=== PATIENT | male | born 1975 | race Caucasian/White ===

== ENCOUNTER 2016-11-04 16:42 | Emergency (ER) | payer OTHER ==
[2016-11-04 16:49] VITALS: RESP 18
[2016-11-04] MEDS ORDERED: ACETAMINOPHEN 325 MG TAB PO ONE (17:08)
[2016-11-04] MEDS ORDERED: NS 1,000 ML IV ONE ×2 (17:12→17:13)
--- NOTE | 2016-11-04 17:14 | EDPHY ---
H & P Time Seen by Provider: 11/04/16 17:11 HPI/ROS: HPI: 41-year-old male presents to emergency department with chief concern flu- like symptoms. I feel very sick. Developed dry cough accompanied with myalgias, chills, weakness 3 days ago. Seem to improve yesterday with resolution of fever with sudden onset of 102 degree fever and worsening of cough today. Reports associated mild shortness of breath. Denies dizziness, dysphagia, chest pain, abdominal pain, nausea, vomiting, diarrhea, rash. No aggravating or alleviating factors. Denies significant past medical history. No history of asthma or pneumonia. Did not receive a flu shot this year. No recent international travel. Has no primary care provider. ROS:10 point review of systems is negative other than as stated in HPI Past Medical/Surgical History: Denies Social History: chartered wealth manager Smoking Status: Never smoked Physical Exam: Temp 38.2, heart rate 96, respiratory rate 18, blood pressure 109/70, 93% on room air General: Awake, alert, calm, cooperative. No acute distress. Head: Normalocephalic. Atraumatic. EENT: PERRLA. EOMI. No pallor or injection. Anicteric. No nystagmus. No injection. TMs intact bilaterally with normal landmarks. Minimal rhinorrhea with moderately erythematous bilateral nasal turbinates. Oropharynx with minimal erythema. Tonsils 2+ bilaterally, no exudates. Neck: Supple, nontender. No lymphadenopathy. Full range of motion. No meningismus. Respiratory: Breathing unlabored. Breath sounds with moderate rhonchi bilateral lower lobes. CV: Chest nontender, atraumatic. Heart rate regular. No murmur, distal pulses 2+ bilaterally. Brisk cap refill all extremities. GI: Abdomen soft, nontender. Bowel sounds normoactive and positive x4 quadrants. Neuro: Alert. Oriented x 3. Speech clear. Nonfocal cranial nerves throughout. Sensation intact all extremities. Skin: Skin warm, dry, intact. No rashes. Skin turgor normal. Extremities: Full range of motion in all 4 extremities. Strength 5+ all extremities. Constitutional: Initial Vital Signs Temperature (C) 38.2 C 11/04/16 16:46 Heart Rate 96 11/04/16 16:46 Respiratory Rate 18 11/04/16 16:46 Blood Pressure 109/70 11/04/16 16:46 O2 Sat (%) 93 11/04/16 16:46 O2 Delivery Mode Room Air Allergies/Adverse Reactions: No Known Allergies Allergy (Unverified 11/04/16 16:49) Home Medications: Medication Instructions Recorded Albuterol Hfa Anes Only [Proair 2 puffs IH QID PRN #1 mdi 11/04/16 Hfa Anes Only] Medical Decision Making ED Course/Re-evaluation: 41-year-old male presents to emergency department with flu-like symptoms and mild shortness of breath. IV normal saline started. Given 650 mg p.o. Tylenol. Labs drawn. Chest x-ray ordered. 1814-positive for influenza A. Chest x-ray negative for evidence of pneumonia. We will treat him with an inhaler for bronchial wall thickening/airway disease and have him follow up with primary care. He is outside the Tamiflu treatment time. Differential Diagnosis: Differential diagnosis includes but is not limited to and in no particular order pneumonia, influenza, bronchitis, other viral URI - Data Points Laboratory Results: Laboratory Results 11/04/16 17:05 11/04/16 17:05 11/04/16 11/04/16 11/04/16 17:32 17:05 16:55 WBC 11.29 H 10^3/uL (3.80-9.50) RBC 5.43 10^6/uL (4.40-6.38) Hgb 17.4 g/dL (13.7-17.5) Hct 50.2 % (40.0-51.0) MCV 92.4 fL (81.5-99.8) MCH 32.0 pg (27.9-34.1) MCHC 34.7 g/dL (32.4-36.7) RDW 12.1 % (11.5-15.2) Plt Count 159 10^3/uL (150-400) MPV 11.4 fL (8.7-11.7) Neut % (Auto) 83.3 H % (39.3-74.2) Lymph % (Auto) 9.6 L % (15.0-45.0) Mcpherson % (Auto) 6.5 % (4.5-13.0) Eos % (Auto) 0.0 L % (0.6-7.6) Baso % (Auto) 0.3 % (0.3-1.7) Nucleat RBC Rel Count 0.0 % (0.0-0.2) Absolute Neuts (auto) 9.42 H 10^3/uL (1.70-6.50) Absolute Lymphs (auto) 1.08 10^3/uL (1.00-3.00) Absolute Monos (auto) 0.73 10^3/uL (0.30-0.80) Absolute Eos (auto) 0.00 L 10^3/uL (0.03-0.40) Absolute Basos (auto) 0.03 10^3/uL (0.02-0.10) Absolute Nucleated RBC 0.00 10^3/uL (0-0.01) Immature Gran % 0.3 % (0.0-1.1) Immature Gran # 0.03 10^3/uL (0.00-0.10) VBG Lactic Acid 1.3 mmol/L (0.7-2.1) Sodium 139 mEq/L (134-144) Potassium 3.8 mEq/L (3.5-5.2) Chloride 98 mEq/L (97-110) Carbon Dioxide 27 mEq/l (22-31) Anion Gap 14 mEq/L (8-16) BUN 15 mg/dL (7-23) Creatinine 1.0 mg/dL (0.7-1.3) Estimated GFR > 60 Glucose 101 H mg/dL (70-100) Calcium 9.1 mg/dL (8.5-10.4) Influenza Typ A,B (DFA) POSITIVE FOR FLU A H (NEGATIVE) Medications Given: Discontinued Medications Acetaminophen (Tylenol) 650 mg PO EDNOW ONE Stop: 11/04/16 17:09 Last Admin: 11/04/16 17:27 Dose: 650 mg Sodium Chloride (Ns) 1,000 mls @ 0 mls/hr IV ONCE ONE PRN Reason: Wide Open Stop: 11/04/16 17:13 Last Admin: 11/04/16 17:28 Dose: 1,000 mls Sodium Chloride (Ns) 1,000 mls @ 0 mls/hr IV ONCE ONE PRN Reason: Wide Open Stop: 11/04/16 17:14 Last Admin: 11/04/16 17:58 Dose: 1,000 mls Departure - Departure Disposition: Home, Routine, Self-Care Clinical Impression: Influenza due to influenza virus, type A, human Condition: Good Instructions: Influenza (ED) Additional Instructions: Plan: You may use 600 mg of ibuprofen every 6 hours for fever, inflammation, or pain. Always take ibuprofen with food and stay well hydrated while taking. Do not exceed the maximum allowable dose in a 24 hour period which is 2400 mg. You may use 650 mg of Tylenol every 8 hours. This may be staggered with the ibuprofen. Do not exceed the maximum dose in a 24 hour period which is 3 GM or 3000 mg. Drink plenty of fluids Follow up with primary care for recheck within 2-3 days without fail--When you call to schedule appointment, please let the office know you are an "ER follow up" appointment" Use your albuterol inhaler 2 puffs every 4-6 hours for shortness of breath, wheezing. Referrals: NONE *PRIMARY CARE P,. [Primary Care Provider] - As per Instructions Keven Ferguson MD [Medical Doctor] - As per Instructions Prescriptions: Albuterol Hfa Anes Only [Proair Hfa Anes Only] 2 puffs IH QID PRN #1 mdi PRN Reason: Short Of Breath/Dyspnea
[2016-11-04 17:36] LABS: % IMMATURE GRANULYOCYTES 0.3 % (0.0-1.1); ABSOLUTE IMMATURE GRANULOCYTES 0.03 10^3/uL (0.00-0.10); ADD DIFF? NO; ADD MORPH? NO; ADD SCAN? NO; ATYPICAL LYMPHOCYTE FLAG 10 (0-99); FRAGMENT RBC FLAG 0 (0-99); HEMATOCRIT 50.2 % (40.0-51.0); HEMOGLOBIN 17.4 g/dL (13.7-17.5); LEFT SHIFT FLG 0 (0-99); LIPEMIA HEMOLYSIS FLAG 90 (0-99); MEAN CELL HEMOGLOBIN CONCENTR. 34.7 g/dL (32.4-36.7); MEAN CELL VOLUME 92.4 fL (81.5-99.8); MEAN PLATELET VOLUME 11.4 fL (8.7-11.7); PLATELET CLUMPS FLAG 0 (0-99); PLATELET COUNT 159 10^3/uL (150-400); RED BLOOD CELL COUNT 5.43 10^6/uL (4.40-6.38); RED CELL DISTRIBUTION WIDTH 12.1 % (11.5-15.2)
[2016-11-04 17:59] LABS: ANION GAP 14 mEq/L (8-16); CALCIUM 9.1 mg/dL (8.5-10.4); CARBON DIOXIDE 27 mEq/l (22-31); CHLORIDE 98 mEq/L (97-110); GLOMERULAR FILTRATION RATE > 60; GLUCOSE 101 mg/dL (70-100); POTASSIUM 3.8 mEq/L (3.5-5.2); SODIUM 139 mEq/L (134-144)
--- NOTE | 2016-11-04 18:18 | DX ---
PA and Lateral Chest - November 04, 2016 History: Bilateral rhonchi, flulike symptoms for 4 days and hypoxia in a 41-year-old male. Comparison: No prior studies are available for comparison. Findings: The heart and mediastinal contours are normal. Pulmonary vascularity is normal. There is c entral mild peribronchial thickening. There are no alveolar opacities seen to suggest pneumonia. Ther e is a scoliotic curvature convex to the right estimated at 25 degrees. There is a pectus excavatum d eformity. Impression: 1. Findings consistent with airways disease are noted. 2. See above report for additional findings.
[2016-11-04 18:32] VITALS: BP 121/74; PULSE 84; TEMP 99.1; O2SAT 90
== END 2016-11-04 18:24 | disposition home or self-care (01) ==
DX: J10.1 Influenza due to other identified influenza virus with other respiratory manifestations (principal)